=== PATIENT | male | born 1945 | race Caucasian/White ===

== ENCOUNTER → 2016-08-19 | Outpatient (CLI) | payer MEDICARE ==
[~2016-08-19] MED LIST: DOBUTamine DRIP for NUC MED 500 MG in DEXTROSE/WATER 1 250ML.BAG IV ONE
--- NOTE | 2016-08-19 13:46 | ECHOS ---
DATE OF SERVICE: 08/19/2016 AGE: 71Y SEX: M HT: 65" WT: 175 lbs. Protocol Sidney: Others: Dobutamine Stress Echo Stage: 3 Dur. of Exercise: 6:45 *Heart Rate Blood Pressure *Rest: 71 Rest: 118/72 * *Max. Achieved: 128 Maximum BP: 157/57 85% PMHR: 128 100% PMHR: 151 *METS: - INDICATIONS: Shortness of breath. MEDICATIONS: Simvastatin, lisinopril, Tamsulosin, Tramadol, gabapentin, lorazepam. Patient unable to exercise because of the problems with the leg. Resting ECG shows sinus rhythm, rate of 71 beats per minutes, HI interval 0.16, QRS 0.10, normal ST-T waves. Utilizing a standard dobutamine protocol, dobutamine was increased up to 30 mcg/kg per minute. At the end of peak heart rate 128 beats per minute, which is approximately 85% of predicted maximal heart rate without any chest pain or pressure or ST segment deviations indicative of ischemia and no symptoms are reported. Patient's baseline images show normal thickening and contractibility. Postexercise images show improved contractility and thickening consistent with a normal study. IMPRESSION: 1. Normal dobutamine stress echocardiogram. 2. Patient did not report any symptoms. 3. Patient did not have any ST segment deviations indicative of ischemia in any of the monitoring 12 leads.
== END | disposition home or self-care (01) ==
LOC: RADNMMAIN 09:27
PROVIDERS: ATTEND Family Medicine
DX: R07.89 Other chest pain (principal)
CPT/HCPCS: 93017; 93350; J1250

== ENCOUNTER → 2017-01-27 | Outpatient (CLI) | payer MEDICARE ==
--- NOTE | 2017-01-27 15:50 | US ---
EXAMINATION TYPE: US carotid duplex BILAT DATE OF EXAM: 01/27/2017 COMPARISON: CLINICAL HISTORY: R42 Lightheadeness, R55 Near syncope. EXAM MEASUREMENTS: RIGHT: Peak Systolic Velocity (PSV) cm/sec ----- Right CCA: 104.0 ----- Right ICA: 68.8 ----- Right ECA: 97.8 ICA/CCA ratio: 0.7 RIGHT: End Diastole cm/sec ----- Right CCA: 25.6 ----- Right ICA: 21.7 ----- Right ECA: 11.1 LEFT: Peak Systolic Velocity (PSV) cm/sec ----- Left CCA: 93.0 ----- Left ICA: 91.9 ----- Left ECA: 100.8 ICA/CCA ratio: 1.0 LEFT: End Diastole cm/sec ----- Left CCA: 19.3 ----- Left ICA: 29.2 ----- Left ECA: 7.6 VERTEBRALS (direction of flow): Right Vertebral: Antegrade Left Vertebral: Antegrade No significant stenosis, high velocities or wall thickening. Plaque seen in left bulb. IMPRESSION: 1. No significant flow-limiting stenosis. Criteria for Assigning % of Stenosis / Diameter reduction (Estimation based on the indirect measurements of the internal carotid artery velocities (ICA PSV). 1. Normal (no stenosis)=ICA PSV < 125 cm/s: ratio < 2.0: ICA EDV<40 cm/s. 2. Less than 50% stenosis=ICA PSV < 125 cm/s: ratio < 2.0: ICA EDV<40 cm/s. 3. 50 to 69% stenosis=ICA PSV of 125 to 230 cm/s: ration 2.0 ? 4.0: ICA EDV 40-100 cm/s. 4. Greater than 70% stenosis to near occlusion= ICA PSV > 230 cm/s: ratio > 4.0: ICA EDV > 100 cm/s. 5. Near occlusion= ICA PSV velocities may be low or undetectable: variable ratio and ICA EDV. 6. Total occlusion=unable to detect flow.
== END | disposition home or self-care (01) ==
LOC: RADUSWWP 14:43
PROVIDERS: ATTEND Family Medicine
DX: R55 Syncope and collapse (principal); R42 Dizziness and giddiness
CPT/HCPCS: 93880

== ENCOUNTER → 2017-03-31 | Outpatient (CLI) | payer MEDICARE ==
--- NOTE | 2017-04-01 20:47 | ECHOF ---
Referral Reason:R07.89 atypical chest pain MEASUREMENTS -------- HEIGHT: 165.1 cm WEIGHT: 79.4 kg BP: 127/71 RVIDd: 2.9 cm (< 3.3) IVSd: 1.2 cm (0.6 - 1.1) LVIDd: 3.5 cm (3.9 - 5.3) LVPWd: 1.1 cm (0.6 - 1.1) IVSs: 1.6 cm LVIDs: 2.5 cm LVPWs: 1.6 cm LAESV Index (A-L): 20.10 ml/m Ao Diam: 3.5 cm (2.0 - 3.7) AV Cusp: 1.7 cm (1.5 - 2.6) LA Diam: 2.8 cm (2.7 - 3.8) MV E Nash: 0.67 m/s MV DecT: 298 ms MV A Nash: 0.74 m/s MV E/A Ratio: 0.90 RAP: 5.00 mmHg RVSP: 22.41 mmHg FINDINGS -------- Sinus rhythm with extra systolic beats. This was a technically adequate study. There is mild concentric left ventricular hypertrophy. Overall left ventricular systolic function is normal with, an EF between 55 - 60 %. The right ventricle is moderately enlarged. Normal LA size by volume 22+/-6 ml/m2. RA appears enlarged. Aortic valve is trileaflet and is mildly thickened. There is no evidence of aortic regurgitation. There is no evidence of aortic stenosis. The mitral valve leaflets are mildly thickened. There is trace mitral regurgitation. Trace tricuspid regurgitation present. There is no evidence of pulmonary hypertension. The right ventricular systolic pressure, as measured by Doppler, is 22.41mmHg. The pulmonic valve was not well visualized. The aortic root size is normal. Normal inferior vena cava with normal inspiratory collapse consistent with estimated right atrial pressure of 5 mmHg. The pericardium is normal. There is no pericardial effusion. CONCLUSIONS -------- 1. Sinus rhythm with extra systolic beats. 2. There is trace mitral regurgitation. 3. Trace tricuspid regurgitation present. 4. There is no evidence of pulmonary hypertension. 5. The right ventricular systolic pressure, as measured by Doppler, is 22.41mmHg. 6. The pulmonic valve was not well visualized. 7. The aortic root size is normal. 8. There is no pericardial effusion. 9. This was a technically adequate study. 10. There is mild concentric left ventricular hypertrophy. 11. Overall left ventricular systolic function is normal with, an EF between 55 - 60 %. 12. The right ventricle is moderately enlarged. 13. Normal LA size by volume 22+/-6 ml/m2. 14. RA appears enlarged. 15. Aortic valve is trileaflet and is mildly thickened. 16. The mitral valve leaflets are mildly thickened. [employer]ER: Himanshu Huff RDCS
== END | disposition home or self-care (01) ==
LOC: RADECHMAIN 14:42
PROVIDERS: ATTEND Family Medicine
DX: I08.1 Rheumatic disorders of both mitral and tricuspid valves (principal); R07.89 Other chest pain
CPT/HCPCS: 93306

== ENCOUNTER 2017-04-11 11:25 | Emergency (ER) | payer MEDICARE ==
--- NOTE | 2017-04-11 11:47 | ED ---
General Adult HPI - General Chief complaint: Urogenital Stated complaint: Urine retention Time Seen by Provider: 04/11/17 11:36 Source: patient, RN notes reviewed, old records reviewed Mode of arrival: wheelchair Limitations: no limitations - History of Present Illness Initial comments: This is a 72-year-old male here for evaluation of bowel pain. I'll. Difficulty with urination. Patient has history of urinary retention. Patient believes is a decreased urinary output for 4 days and severe bladder pain. Recently on antibiotics for UTI. - Related Data Home Medications Medication Instructions Recorded Confirmed Gabapentin [Neurontin] 1 tab PO QID 04/11/17 04/11/17 LORazepam [Ativan] 0.5 mg PO BID 04/11/17 04/11/17 Lisinopril [Zestril] 1 tab PO DAILY 04/11/17 04/11/17 Simvastatin [Zocor] 1 tab PO DAILY 04/11/17 04/11/17 Tamsulosin HCl [Flomax] 1 tab PO DAILY 04/11/17 04/11/17 Allergies Allergy/AdvReac Type Severity Reaction Status Date / Time No Known Allergies Allergy Verified 04/11/17 11:33 Review of Systems ROS Statement: Those systems with pertinent positive or pertinent negative responses have been documented in the HPI. ROS Other: All systems not noted in ROS Statement are negative. Past Medical History Past Medical History: Hyperlipidemia, Hypertension, Prostate Disorder Additional Past Medical History / Comment(s): polio, chronic knee pain History of Any Multi-Drug Resistant Organisms: None Reported Past Surgical History: Joint Replacement, Orthopedic Surgery Past Psychological History: Anxiety Smoking Status: Never smoker Past Alcohol Use History: Rare Past Drug Use History: None Reported General Exam Limitations: no limitations General appearance: alert, in no apparent distress, anxious Head exam: Present: atraumatic, normocephalic, normal inspection Eye exam: Present: normal appearance, PERRL, EOMI. Absent: scleral icterus, conjunctival injection, periorbital swelling ENT exam: Present: normal exam, mucous membranes moist Neck exam: Present: normal inspection. Absent: tenderness, meningismus, lymphadenopathy Respiratory exam: Present: normal lung sounds bilaterally. Absent: respiratory distress, wheezes, rales, rhonchi, stridor Cardiovascular Exam: Present: regular rate, normal rhythm, normal heart sounds. Absent: systolic murmur, diastolic murmur, rubs, gallop, clicks GI/Abdominal exam: Present: soft, normal bowel sounds. Absent: distended, tenderness, guarding, rebound, rigid Extremities exam: Present: normal inspection, full ROM, normal capillary refill. Absent: tenderness, pedal edema, joint swelling, calf tenderness Back exam: Present: normal inspection Neurological exam: Present: alert, oriented X3, CN II-XII intact Psychiatric exam: Present: normal affect, normal mood Skin exam: Present: warm, dry, intact, normal color. Absent: rash Course Vital Signs 04/11/17 04/11/17 04/11/17 11:28 11:50 11:55 Temperature 98.4 F Pulse Rate 92 92 87 Respiratory 20 18 18 Rate Blood Pressure 137/78 185/89 158/74 O2 Sat by Pulse 97 97 97 Oximetry 04/11/17 11:58 Temperature Pulse Rate 76 Respiratory 17 Rate Blood Pressure 159/78 O2 Sat by Pulse 97 Oximetry - Reevaluation(s) Reevaluation #1: 04/11/17 12:25 Patient has great pain relief after placement of Ken Medical Decision Making - Medical Decision Making 72 me[facility] ER for evaluation of suprapubic bowel pain, recent diagnosis of urinary tract infection, significant urinary retention. A liter in his bladder. Patient is fully place will be sent home with Ken to follow up with urology Disposition Clinical Impression: Urinary retention Disposition: HOME SELF-CARE Condition: Good Instructions: Urinary Retention in Men (ED) Referrals: Michael Banda DO [Primary Care Provider] - 1-2 days Zachariah Sanders MD [STAFF PHYSICIAN] - 1-2 days
[2017-04-11 12:04] VITALS: RESP 17
[2017-04-11 12:55] LABS: Appearance,Urine Cloudy (Clear); Bacteria,Urine Many /hpf; Bilirubin,Urine Negative (Negative); Glucose,Urine (UA) Negative (Negative); Ketones,Urine Negative (Negative); Leukocyte Esterase,Urine Large (Negative); Mucus,Urine Few /hpf; Nitrite,Urine Positive (Negative); Particle Count 36803; Protein,Urine Trace (Negative); RBC,Urine 4 /hpf (0-5); Specific Gravity,Urine 1.012 (1.001-1.035); UA Billing (MACRO vs. MICRO) MICRO; Urobilinogen,Urine <2.0 mg/dL (<2.0); WBC,Urine 75 /hpf (0-5)
[2017-04-11 13:16] VITALS: BP 154/72; PULSE 78; TEMP 97.1
== END 2017-04-11 13:35 | disposition home or self-care (01) ==
LOC: EC 11:25
DX: R33.9 Retention of urine, unspecified (principal); I10 Essential (primary) hypertension; E78.5 Hyperlipidemia, unspecified; N42.9 Disorder of prostate, unspecified; Z79.899 Other long term (current) drug therapy; F41.9 Anxiety disorder, unspecified
CPT/HCPCS: 51702; 81001; 87077; 87086; 87186; 99284

== ENCOUNTER → 2017-05-14 | Outpatient (CLI) | payer MEDICARE ==
[2017-05-14 12:10] LABS: Anion Gap 8 mmol/L; Blood Urea Nitrogen 17 mg/dL (9-20); Calcium 9.7 mg/dL (8.4-10.2); Carbon Dioxide 31 mmol/L (22-30); Chloride 102 mmol/L (98-107); Glucose 87 mg/dL (74-99); Non-African American GFR(MDRD) >60 (>60 ml/min/1.73 sqM); Potassium 5.3 mmol/L (3.5-5.1); Sodium 141 mmol/L (137-145)
[2017-05-14 12:17] LABS: Basophils % (A) 0 %; CH 29.5; CHCM 32.2; Eosinophils # (A) 0.2 k/uL (0-0.7); Eosinophils % (A) 3 %; HCT 43.2 % (39.0-53.0); HDW 2.66; Luc # (Auto) 0.12; Luc % (Auto) 2; Lymphocytes # (A) 1.4 k/uL (1.0-4.8); Lymphocytes % (A) 23 %; MCH 29.7 pg (25.0-35.0); MCHC 32.3 g/dL (31.0-37.0); MCV 91.9 fL (80.0-100.0); Mean Platelet Volume 6.6; Monocytes # (A) 0.4 k/uL (0-1.0); Monocytes % (A) 6 %; Neutrophils % (A) 66 %; RDW 13.6 % (11.5-15.5); WBC (Perox) 6.05
== END | disposition home or self-care (01) ==
LOC: LABPAT 11:28
PROVIDERS: ATTEND Urology
DX: Z01.812 Encounter for preprocedural laboratory examination (principal); N40.1 Benign prostatic hyperplasia with lower urinary tract symptoms; R31.0 Gross hematuria; Z79.899 Other long term (current) drug therapy
CPT/HCPCS: 80048; 85025; 87077; 87086; 87186

== ENCOUNTER 2017-05-21 06:40 | Day surgery (SDC) | payer MEDICARE ==
[2017-05-13 16:20] VITALS: BMI 29.1
[~2017-05-21 06:40] MED LIST changes: -DOBUTamine DRIP for NUC MED 500 MG in DEXTROSE/WATER 1 250ML.BAG IV ONE; +GENTAMICIN 120 MG in SODIUM CHLORIDE 0.9% 100 ML IVPB ONE; +HYDROmorphone 0.5 MG/0.5 ML SYRINGE IVP PRN; +LACTATED RINGERS 1,000 ML IV SCH; +MIDAZOLAM 2 MG/2 ML VIAL IV PRN; +ONDANSETRON 4 MG/2 ML VIAL IVP ONE; +ceFAZolin 2 GM in SODIUM CHLORIDE 0.9% 100 ML IVPB ONE
[2017-05-21] MEDS ORDERED: LIDOCAINE 1% 20 ML VIAL (10MG/ML) FOR IV START INTRADERMA ONE (07:48)
[2017-05-21] MEDS ORDERED: LIDOCAINE 1% INJ 10MG/ML (20 ML MDV) ONE (08:26)
[2017-05-21] MEDS ORDERED: PROPOFOL 10 MG/ML 20 ML VIAL IV ONE (08:26)
[2017-05-21] MEDS ORDERED: MIDAZOLAM 2 MG/2 ML VIAL ONE (08:26)
[2017-05-21] MEDS ORDERED: fentaNYL (PF) 50 MCG/ML 2 ML AMP ONE (08:26)
[2017-05-21 11:35] VITALS: TEMP 97
--- NOTE | 2017-05-21 11:37 | P.OP ---
Date of Procedure: 05/21/17 Preoperative Diagnosis: Urinary Retention Secondary to BPH Postoperative Diagnosis: Same Procedure(s) Performed: Cystoscopy, Bipolar Transurethral Resection of Prostate (TURP) Anesthesia: spinal Surgeon: Zachariah Sanders Estimated Blood Loss (ml): 150 IV fluids (ml): 1,400 Pathology: other (prostate chips) Condition: stable Disposition: PACU Indications for Procedure: He is a 72-year-old male with a history of polio. He recently developed urinary retention. 1100 cc of urine was drained from his bladder. He is currently taking tamsulosin 0.8 mg, and has a Ken catheter in place. A CMG shows a recompensated bladder, and cystoscopy shows trilobar BPH. He will be scheduled to undergo a TURP. Operative Findings: Trilobar BPH Description of Procedure: The patient was taken in the operating room and placed in the dorsolithotomy position after being given a spinal anesthetic, The external genitalia was prepped and draped sterilely. The 25-Georgian ACMI resectoscope sheath was introduced into the bladder. The bladder was inspected. Both ureteral orifices were of normal anatomic location and configuration, and clear urine effluxed from both. No tumors or foreign bodies were seen. Examination of the prostate revealed complete obstruction with a trilobar configuration. Using the bipolar cutting loop, the median lobe was initially resected. Next, the lateral lobes were resected down to the surgical capsule. The floor of the prostate was then resected, proximal to the verumontanum. Lastly, any remaining anterior tissue was resected. The prostatic fossa was then carefully examined. The remaining apical tissue was then carefully resected. The resection was carried down to the surgical capsule in all 4 quadrants. The prostatic fossa was then carefully examined, and any areas of bleeding were controlled with electrocautery. Excellent hemostasis was attained. The resectoscope was withdrawn into the bulbous urethra. The external urinary sphincter remained intact. The prostatic fossa was open. The AnaliliaCiplex evacuator was used to remove all prostate chips from the bladder. These were saved and sent for pathologic examination. The resectoscope was removed, and a 20 Georgian Ken catheter was placed. The return was clear. The patient tolerated the procedure well was taken to the recovery room in stable condition.
[2017-05-21 12:15] VITALS: RESP 18
[2017-05-21 13:15] VITALS: BP 109/60; PULSE 84
== END 2017-05-21 13:50 | disposition home or self-care (01) ==
LOC: OR 06:40
PROVIDERS: ATTEND Urology
DX: N40.1 Benign prostatic hyperplasia with lower urinary tract symptoms (principal); R33.8 Other retention of urine; N52.9 Male erectile dysfunction, unspecified; I10 Essential (primary) hypertension; E78.5 Hyperlipidemia, unspecified; M54.9 Dorsalgia, unspecified; F32.9 Major depressive disorder, single episode, unspecified; G62.9 Polyneuropathy, unspecified; Z86.12 Personal history of poliomyelitis; R53.1 Weakness; Z79.2 Long term (current) use of antibiotics; Z79.891 Long term (current) use of opiate analgesic; Z79.899 Other long term (current) drug therapy
CPT/HCPCS: 52601; 93005; 88305; J2250; J0690; J2405; J2001; J3010; J1580; J2704

== ENCOUNTER 2018-12-01 10:39 | Day surgery (SDC) | payer MEDICARE ==
[2018-11-25 16:04] VITALS: BMI 26.4
[~2018-12-01 10:39] MED LIST changes: +ALPRAZolam 0.25 MG TAB PO PRN; +ALPRAZolam 0.5 MG TAB PO PRN; +ASPIRIN 325 MG TAB PO STA; +ATORVASTATIN 80 MG TAB PO STA; -GENTAMICIN 120 MG in SODIUM CHLORIDE 0.9% 100 ML IVPB ONE; -HYDROmorphone 0.5 MG/0.5 ML SYRINGE IVP PRN; -LACTATED RINGERS 1,000 ML IV SCH; -MIDAZOLAM 2 MG/2 ML VIAL IV PRN; +NITROGLYCERIN SL TABS 0.4 MG TAB SUBLINGUAL PRN; -ONDANSETRON 4 MG/2 ML VIAL IVP ONE; +SODIUM CHLORIDE 0.9% 1,000 ML in EMPTY BAG 1 BAG IV ONE; -ceFAZolin 2 GM in SODIUM CHLORIDE 0.9% 100 ML IVPB ONE
[2018-12-01] MEDS ORDERED: VERAPAMIL 2.5 MG/ML 2 ML AMP ONE (13:11)
[2018-12-01] MEDS ORDERED: fentaNYL (PF) 50 MCG/ML 2 ML AMP ONE (13:11)
[2018-12-01] MEDS ORDERED: LIDOCAINE 1% INJ 10MG/ML (20 ML MDV) ONE (13:12)
[2018-12-01] MEDS ORDERED: HEPARIN SODIUM 1,000 UN/ML (10ML VL) ONE (13:12)
[2018-12-01] MEDS ORDERED: LIDOCAINE 1% INJ 10MG/ML (20 ML MDV) SQ ONE (13:37)
[2018-12-01] MEDS ORDERED: fentaNYL (PF) 50 MCG/ML 2 ML AMP IVP ONE (13:37)
[2018-12-01] MEDS ORDERED: MIDAZOLAM 2 MG/2 ML VIAL IV ONE (13:37)
[2018-12-01] MEDS ORDERED: VERAPAMIL SYRINGE (5 MG/10 ML) INTRAARTER ONE (13:40)
[2018-12-01] MEDS ORDERED: IOPAMIDOL-370 100ML BTL INJ ONE ×2 (14:05→14:10)
[2018-12-01] MEDS ORDERED: RX INFO: IV CONTRAST WAS GIVEN 1 EACH MISC MISCELLANE PRN (14:30)
[2018-12-01] MEDS ORDERED: IBUPROFEN 800 MG TAB PO PRN (14:30)
[2018-12-01] MEDS ORDERED: traMADol 50 MG TAB PO PRN (14:30)
[2018-12-01] MEDS ORDERED: LORazepam 0.5 MG TAB PO PRN (14:30)
[2018-12-01 15:05] VITALS: RESP 18
--- NOTE | 2018-12-01 15:12 | CC ---
CARDIAC CATHETERIZATION REPORT Mr. Claudio is a 73-year-old male with a known history of hypertension, hyperlipidemia and a strong family history of coronary artery disease who has been complaining of progressive fatigue and lack of energy. He had a myocardial perfusion imaging that revealed partial reversible inferior wall defect. In view of that, recommendation made regarding cardiac catheterization. The procedures, risks, and complications were discussed with the patient who is in full understanding and agreement. PROCEDURE: Patient was brought to the laborer stores in a fasting semi-sedated state after receiving fentanyl and Benadryl and achieving moderate conscious sedated state. Using Xylocaine anesthesia and Seldinger technique, a 6-Israeli sheath was introduced in the right radial artery, attempt to cannulate the right coronary artery using a 5-Israeli 3.5 bend right Taylor catheter were unsuccessful. Attempt to cannulate the left main using a 5- Israeli 3.5 bend and 4 bend left Taylor were unsuccessful. At that time, the catheters were removed and a 6-Israeli Xavi catheter was introduced and images of the coronary arteries were obtained. Following that, a 5-Israeli tight pigtail catheter was introduced in the left ventricle and a 30 degree RUSSELL view of the left ventricle was obtained. Following that, catheter and sheath were removed. Hemostasis was obtained with deployment of a TR band. There was no immediate complication. Patient is returned to his room in stable condition. Of note, the patient received 4000 units of intravenous heparin as well as intra-arterial verapamil. FINDINGS: FLUOROSCOPY: There was calcification involving the left anterior descending artery and the right coronary artery. LEFT MAIN: This is a large-sized vessel bifurcating into left circumflex, left anterior descending artery. Left main coronary artery has no evidence of high-grade stenosis. LEFT ANTERIOR DESCENDING ARTERY: This is a large-sized vessel, reaching toward the apex with a wraparound apex segment, calcified in the proximal segment. The left anterior descending artery has no evidence of high-grade stenosis. LEFT CIRCUMFLEX: This is a large nondominant vessel, giving rise to two obtuse marginal branch, the second one is large in caliber. The left circumflex as well as branches have no evidence of obstructive coronary artery disease. RIGHT CORONARY ARTERY: This is a large dominant vessel, bifurcating distally into PDA, has an anomalous origin from the left coronary cusp. The right coronary artery has a mild intimal disease in the mid segment of 20%. The rest of the vessel has no high- grade stenosis. LEFT VENTRICULOGRAM: Left ventriculogram was performed in 30 degree RUSSELL view and revealed normal size left ventricular size and systolic function, ejection fraction 60%. There was no significant mitral regurgitation. HEMODYNAMICS: There was no gradient across the aortic valve. The left ventricular end- diastolic pressure was 8-10 mmHg. CONCLUSION: 1. Calcified coronary artery. 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 3. 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 RECOMMENDATION: In view of finding anatomy, recommend continue medical therapy with aggressive coronary risk modifications being initiated. Those findings and recommendation were discussed with the patient and his family who is in full understanding and agreement. Duration of procedure 41 minutes. MMODL / IJN: [id number] /
[2018-12-01] MEDS ORDERED: GABAPENTIN 300 MG CAP PO SCH (16:00)
[2018-12-01 16:02] VITALS: TEMP 97.8
[2018-12-01 17:33] VITALS: BP 134/74; PULSE 67
[2018-12-02] MEDS ORDERED: ATORVASTATIN 10 MG TAB PO SCH (09:00)
[2018-12-02] MEDS ORDERED: ASPIRIN 81 MG PO SCH (09:00)
[2018-12-02] MEDS ORDERED: LISINOPRIL 10 MG TAB PO SCH (09:00)
== END 2018-12-01 19:02 | disposition home or self-care (01) ==
LOC: CATHCVL 10:39 → 1SOBS 14:11 → CATHCVL 19:02
PROVIDERS: ATTEND Internal Medicine Interventional Cardiology
DX: I25.10 Atherosclerotic heart disease of native coronary artery without angina pectoris (principal); I25.84 Coronary atherosclerosis due to calcified coronary lesion; I10 Essential (primary) hypertension; E78.2 Mixed hyperlipidemia; E78.00 Pure hypercholesterolemia, unspecified; Z82.49 Family history of ischemic heart disease and other diseases of the circulatory system; Z79.1 Long term (current) use of non-steroidal anti-inflammatories (NSAID); Z79.82 Long term (current) use of aspirin; Z79.899 Other long term (current) drug therapy
CPT/HCPCS: 93458; C1894; C1769; J2250; J2001; J3010; J1644; Q9967

== ENCOUNTER → 2019-02-10 | Outpatient (CLI) | payer MEDICARE ==
--- NOTE | 2019-02-10 13:00 | US ---
EXAMINATION TYPE: US abdomen complete DATE OF EXAM: 02/10/2019 COMPARISON: US . renal 2013 CLINICAL HISTORY: R10.9 Abdomal Pain. EXAM MEASUREMENTS: Liver Length: 14.5 cm Gallbladder Wall: 0.2 cm CBD: 0.5 cm Spleen: 10.4 cm Right Kidney: 11.2 x 3.7 x5.2 cm Left Kidney: 10.6 x 5.2 x 3.7 cm Pancreas: Tail obscured by overlying bowel gas Liver: 2.1 x 2.1 x 1.5 cm cyst left lobe, posterior lobe 1.5 x 0.9 x 1.4 cm. These were seen on the r enal ultrasound of 2013. Gallbladder: Cholelithiasis seen layering dependently. No biliary sludge. Evidence for sonographic Romero's sign: No CBD: wnl Spleen: wnl Right Kidney: cysts 2.0 x 1.7 x 1.7 cm, 2.3 x 2.8 x 1.6 cm upper pole Left Kidney: wnl Upper IVC: wnl Abd Aorta: wnl The intrahepatic portion of the IVC and proximal abdominal aorta are within normal limits. There is no evidence of acute cholecystitis. Common bile duct is unremarkable. The visualized portions of th e pancreas are homogenous. The spleen is unremarkable. Kidneys are symmetric and free of hydronephr osis. No suspicious renal lesions are seen. IMPRESSION: Cholelithiasis without sonographic evidence evidence of acute cholecystitis. Redemonstrat ion of simple appearing hepatic and renal cysts.
== END | disposition home or self-care (01) ==
LOC: RADUSWWP 10:42
PROVIDERS: ATTEND Family Medicine
DX: K80.20 Calculus of gallbladder without cholecystitis without obstruction (principal); N28.1 Cyst of kidney, acquired; K76.89 Other specified diseases of liver
CPT/HCPCS: 76700

== ENCOUNTER → 2019-02-15 | Outpatient (CLI) | payer MEDICARE ==
--- NOTE | 2019-02-15 13:31 | XR ---
Lumbosacral spine HISTORY: Left-sided back pain 5 views of the lumbosacral spine No comparisons Minimal anterolisthesis grade 1 L4-5. Superior endplate of L1 shows mild depression. There is loss of disc height especially at L1-L5 S1 to lesser extent L2-3, L4-5, vacuum phenomenon present L1-L5 S1. Sclerosis present in the posterior elements. IMPRESSION: Degenerative disc disease, facet arthropathy.
== END | disposition home or self-care (01) ==
LOC: RADXRMAIN 11:26
PROVIDERS: ATTEND Family Medicine
DX: M51.37 Other intervertebral disc degeneration, lumbosacral region (principal); M46.97 Unspecified inflammatory spondylopathy, lumbosacral region
CPT/HCPCS: 72110

== ENCOUNTER → 2020-12-29 | Outpatient (CLI) | payer MEDICARE ==
--- NOTE | 2020-12-29 19:02 | MR ---
EXAMINATION TYPE: MR iac wo/w con DATE OF EXAM: 12/29/2020 COMPARISON: None HISTORY: Hearing loss CONTRAST: Standard multiplanar, multisequence MRI departmental protocol utilizing 7 mL intravenous gadolinium contrast. there is cerebral cortical atrophy. There is no mass effect nor midline shift. There is no evidence o f intracranial hemorrhage. There are a few scattered small foci of increased signal in the white alberta er in the frontal lobes. These measure up to 5 mm. Total number is approximately 5. There is a single 4 mm focus of increased signal adjacent to the occipital horn right lateral ventricle. There is no m idline shift. The diffusion images show no evidence of an acute acute infarct. Cerebellum is intact. The brainstem appears intact. Internal auditory canals appear normal. The acoustic nerve and vestibular nerves appear normal. There is no evidence of cerebellopontine angle mass. The contrast images show no pathologic enhancement. T he pituitary stalk is in the midline. Optic chiasm appears normal. Sella turcica is normal. There is no evidence of orbital mass. IMPRESSION: There are a few white matter high signal foci of uncertain significance. This could relate to minimal microvascular ischemia. No evidence of posterior fossa abnormality.
== END | disposition home or self-care (01) ==
LOC: RADMRIMAIN 12:20
PROVIDERS: ATTEND Otolaryngology
DX: R90.82 White matter disease, unspecified (principal)
CPT/HCPCS: 70553; A9585

== ENCOUNTER 2021-03-01 20:13 | Emergency (ER) | payer OTHER, MEDICARE ==
[2021-03-01 20:20] VITALS: BP 104/81; PULSE 82; RESP 18; TEMP 98.9
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
== END 2021-03-01 21:35 | disposition home or self-care (01) ==
LOC: EC 20:13
DX: Z04.1 Encounter for examination and observation following transport accident (principal); I10 Essential (primary) hypertension; E78.5 Hyperlipidemia, unspecified; F41.9 Anxiety disorder, unspecified; G89.29 Other chronic pain; Z79.82 Long term (current) use of aspirin; Z79.899 Other long term (current) drug therapy; Z82.49 Family history of ischemic heart disease and other diseases of the circulatory system; V89.2XXA Person injured in unspecified motor-vehicle accident, traffic, initial encounter; Y92.410 Unspecified street and highway as the place of occurrence of the external cause
CPT/HCPCS: 70450; 72125; 99284

== ENCOUNTER 2024-12-20 20:25 | Inpatient (IN) | payer MEDICARE ==
[2024-12-20 21:04] LABS: Basophils # (A) 0.03 10*3/uL (0.00-0.10); Basophils % (A) 0.3 %; Eosinophils # (A) 0.02 10*3/uL (0.04-0.35); Eosinophils % (A) 0.2 %; HCT 40.5 % (39.6-50.0); HGB 13.4 g/dL (13.0-17.0); Immature Platelet Fraction 2.5 % (1.1-6.1); Lymphocytes % (A) 5.9 %; MCH 30.2 pg (27.0-32.0); MCHC 33.1 g/dL (32.0-37.0); MCV 91.2 fL (80.0-97.0); Mean Platelet Volume 10.5 fL (9.5-12.2); Monocytes # (A) 1.05 10*3/uL (0.20-1.00); Monocytes % (A) 10.4 %; Neutrophils # (A) 8.36 10*3/uL (1.80-7.70); Neutrophils % (A) 82.6 %; RBC 4.44 10*6/uL (4.40-5.60); RDW 14.2 % (11.5-14.5); WBC 10.12 10*3/uL (4.50-10.00)
--- NOTE | 2024-12-20 21:16 | ED ---
Fall HPI - General Chief Complaint: Fall Stated Complaint: Fall Time Seen by Provider: 12/20/24 20:35 Source: patient, RN notes reviewed Mode of arrival: EMS Limitations: no limitations - History of Present Illness Initial Comments: This is a 79-year-old male who presents to the emergency department for a fall. Around 10 AM he was going to the kitchen and his leg slid out from underneath him, causing him to fall and land on his right side. Denies hitting his head or any loss of consciousness. Not taking any blood thinners. All of the pain is to his right hip and lower back. States that he is unable to move his leg as a result of the pain. He has also been unable to ambulate since he fell. He did not come in right away, because he wanted to see if his pain would improve. His right leg is thinner with poor pulses, which is chronic for him secondary to a history of polio. Denies sustaining any additional injuries. MD Complaint: fall - Related Data Home Medications Medication Instructions Recorded Confirmed LORazepam [Ativan] 0.5 mg PO TID 04/11/17 03/01/21 Simvastatin [Zocor] 20 tab PO HS 04/11/17 03/01/21 lisinopriL [Zestril] 10 mg PO DAILY 04/11/17 03/01/21 Gabapentin 300 mg PO TID 05/13/17 03/01/21 traMADol HCL [Ultram] 50 mg PO TID 05/13/17 03/01/21 Citalopram Hydrobromide [CeleXA] 40 mg PO DAILY 03/01/21 03/01/21 Tamsulosin HCl [Flomax] 0.4 mg PO BID 03/01/21 03/01/21 Allergies Allergy/AdvReac Type Severity Reaction Status Date / Time No Known Allergies Allergy Verified 12/20/24 20:32 Review of Systems ROS Statement: Those systems with pertinent positive or pertinent negative responses have been documented in the HPI. ROS Other: All systems not noted in ROS Statement are negative. 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 NERVE PAIN IN LEGS. walking pna, broncitis History of Any Multi-Drug Resistant Organisms: None Reported Past Surgical History: Joint Replacement, Orthopedic Surgery, Prostate Surgery Additional Past Surgical History / Comment(s): TOTAL LEFT KNEE X2, RIGHT FOOT MORALES S METAL CASSIE TO PREVENT FOOT DROP. Past Anesthesia/Blood Transfusion Reactions: Previous Problems w/ Anesthesia Additional Past Anesthesia/Blood Transfusion Reaction / Comment(s): STATES SPINAL ANESTHESIA DID NOT TAKE- WOKE UP SCREAMING. STATES POST POLIO SYNDROME AFFECTS ANESTHESIA. Past Psychological History: Anxiety Smoking Status: Never smoker Past Alcohol Use History: Rare Past Drug Use History: None Reported - Past Family History Mother Family Medical History: CVA/TIA Additional Family Medical History / Comment(s): OF HEART PROBLEMS IN HER 80'S Father Family Medical History: Myocardial Infarction ([place]) Additional Family Medical History / Comment(s): OF HEART ATTACK AT 48 YRS OLD. Brother(s) Family Medical History: Myocardial Infarction ([place]) Additional Family Medical History / Comment(s): TWIN BROTHER OF HEART ATTACK . General Exam Limitations: no limitations General appearance: alert, in no apparent distress Head exam: Present: atraumatic, normocephalic, normal inspection Respiratory exam: Present: normal lung sounds bilaterally. Absent: respiratory distress, wheezes, rales, rhonchi, stridor Cardiovascular Exam: Present: regular rate, normal rhythm Extremities exam: Present: other (Shortening and external rotation of the right lower extremity. ROM limited by pain. Capillary refill less than 1 second. Poor pulseschronic per patient) Neurological exam: Present: alert, oriented X3, CN II-XII intact Psychiatric exam: Present: normal affect, normal mood Skin exam: Present: warm, dry, intact, normal color. Absent: rash Course Vital Signs 12/20/24 12/20/24 12/21/24 20:26 22:00 00:02 Temperature 99.6 F Pulse Rate 69 87 75 Respiratory 16 18 18 Rate Blood Pressure 115/47 121/65 110/60 O2 Sat by Pulse 95 95 94 L Oximetry Medical Decision Making - Medical Decision Making This is a 79-year-old male who presents to the emergency department for right hip pain and low back pain after a fall. Was pt. sent in by a medical professional or institution? @ -No Did you speak to anyone other than the patient for history? @ -No Did you review nursing and triage notes? @ -Yes, and I agree, it is accurate with regards to the patient's symptoms. Were old charts reviewed? @ -No Differential Diagnosis? @ -Differential Musculoskeletal Muscular strain, contusion, ligament sprain, fracture, arthritis, septic arthritis, bursitis, cellulitis, muscle spasm, nerve compression, DVT, arterial occlusion, herpes zoster, electrolyte abnormality, tumor.... This is not meant to be in all inclusive list. EKG interpreted by me (3pts min.)? @ -EKG interpreted by me demonstrating the following: Sinus rhythm. Ventricular rate 70 bpm, ME interval 154 ms, QRS duration 93 ms, QTc 402 ms. X-rays interpreted by me (1pt min.)? @ -Chest x-ray obtained, my interpretation identifies no localized consolidations or infiltrates. X-ray of the right hip/AP pelvis obtained. My interpretation identifies a right femoral neck fracture. X-ray of the right knee and lumbar spine obtained. My interpretation identifies no acute fractures. CT interpreted by me (1pt min.)? @ -Not obtained U/S interpreted by me (1pt. min.)? @ -Not obtained What testing was considered but not performed? (CT, X-rays, U/S, labs)? Why? @ -None What meds were considered but not given? Why? @ -None Did you discuss the management of the patient with other professionals? @ -Yes, Dr. Ochoa, who accepts the patient for admission Did you reconcile home meds? @ -No Was smoking cessation discussed for >3mins.? @ -No Was critical care preformed (if so, how long)? @ -No Were there social determinants of health that impacted care today? How? (Homelessness, low income, unemployed, alcoholism, drug addiction, transportation, low edu. Level, literacy, decrease access to med. care, long term, rehab)? @ -No Was there de-escalation of care discussed even if they declined? (Discuss DNR or withdrawal of care, Hospice)? @ -No What co-morbidities impacted this encounter? (DM, HTN, Smoking, COPD, CAD, Cancer, CVA, Hep., AIDS, mental health diagnosis, sleep apnea, morbid obesity)? @ -HTN, HLD Was patient admitted / discharged? @ -Admitted. X-ray of the right hip/AP pelvis obtained demonstrating a femoral neck fracture. X-ray of the lumbar spine and right knee reveals no acute process. Preoperative workup obtained including an EKG, lab work, and chest x- ray. Lab work demonstrates mild leukocytosis and is otherwise unremarkable. Chest x-ray reveals no acute process. Patient admitted to orthopedics for right femoral neck fracture. Medicine consulted for medical management and surgical clearance. Will keep patient n.p.o. after midnight in the event any intervention takes place tomorrow. Case discussed with ED attending Dr. Gould. Undiagnosed new problem with uncertain prognosis? @ -None Drug Therapy requiring intensive monitoring for toxicity (Heparin, Nitro, Insulin, Cardizem)? @ -None Were any procedures done? @ -None Diagnosis/symptom? @ -Right femoral neck fracture, fall Acute, or Chronic, or Acute on Chronic? @ -Acute Uncomplicated (without systemic symptoms) or Complicated (systemic symptoms)? @ -Uncomplicated Side effects of treatment? @ -None Exacerbation, Progression, or Severe Exacerbation] @ -Not applicable Poses a threat to life or bodily function? @ -Will limit his ability to ambulate for the meantime - Lab Data Result diagrams: 12/20/24 20:51 12/20/24 20:51 Lab Results 12/20/24 12/20/24 12/20/24 Range/Units 20:51 20:51 20:51 WBC 10.12 H (4.50-10.00) 10*3/uL RBC 4.44 (4.40-5.60) 10*6/uL Hgb 13.4 (13.0-17.0) g/dL Hct 40.5 (39.6-50.0) % MCV 91.2 (80.0-97.0) fL MCH 30.2 (27.0-32.0) pg MCHC 33.1 (32.0-37.0) g/dL Plt Count 215 (140-440) 10*3/uL MPV 10.5 (9.5-12.2) fL Immature Gran % (Auto) 0.6 % Neutrophils % 82.6 % Lymphocytes % 5.9 % Monocytes % 10.4 % Eosinophils % 0.2 % Basophils % 0.3 % Immature Gran # 0.06 H (0.00-0.04) 10*3/uL Neutrophils # 8.36 H (1.80-7.70) 10*3/uL Lymphocytes # 0.60 L (0.90-5.00) 10*3/uL Monocytes # 1.05 H (0.20-1.00) 10*3/uL Eosinophils # 0.02 L (0.04-0.35) 10*3/uL Basophils # 0.03 (0.00-0.10) 10*3/uL Manual Slide Review Performed Immature Plt Fraction 2.5 (1.1-6.1) % PT 10.9 (10.0-12.5) sec INR 1.0 (<1.2) APTT 18.8 L (22.0-30.0) sec Sodium 135 L (137-145) mmol/L Potassium 5.0 (3.5-5.1) mmol/L Chloride 102 (98-107) mmol/L Carbon Dioxide 21 L (22-30) mmol/L Anion Gap 12 mmol/L BUN 34 H (9-20) mg/dL Creatinine 0.79 (0.66-1.25) mg/dL Est GFR (CKD-EPI)AfAm >90 (>60 ml/min/1.73 sqM) Est GFR (CKD-EPI)NonAf 87 (>60 ml/min/1.73 sqM) Glucose 110 H (74-99) mg/dL Calcium 9.6 (8.4-10.2) mg/dL Total Bilirubin 1.5 H (0.2-1.3) mg/dL AST 53 (17-59) U/L ALT 39 (4-49) U/L Alkaline Phosphatase 84 (38-126) U/L Creatine Kinase 146 (55-170) U/L Total Protein 7.2 (6.3-8.2) g/dL Albumin 4.3 (3.5-5.0) g/dL - Radiology Data Radiology results: report reviewed, image reviewed Disposition Clinical Impression: Fall, Fracture of femoral neck, right Disposition: ADMITTED IP TO THIS HOSP
[2024-12-20] MEDS: MORPHINE SULFATE 4 MG/ML SYRINGE IVP STA (21:23)
[2024-12-20] MEDS: SODIUM CHLORIDE 0.9% 1,000 ML IV ONE (21:23)
[2024-12-20 21:29] LABS: Prothrombin Time 10.9 sec (10.0-12.5)
[2024-12-20 21:32] LABS: ALT 39 U/L (4-49); African American GFR (CKD) >90 (>60 ml/min/1.73 sqM); Albumin 4.3 g/dL (3.5-5.0); Anion Gap 12 mmol/L; Blood Urea Nitrogen 34 mg/dL (9-20); Calcium 9.6 mg/dL (8.4-10.2); Carbon Dioxide 21 mmol/L (22-30); Chloride 102 mmol/L (98-107); Creatine Kinase 146 U/L (55-170); Glucose 110 mg/dL (74-99); Non-African American GFR(CKD) 87 (>60 ml/min/1.73 sqM); Sodium 135 mmol/L (137-145); Total Bilirubin 1.5 mg/dL (0.2-1.3); Total Protein 7.2 g/dL (6.3-8.2)
[2024-12-20 21:33] LABS: AST 53 U/L (17-59); Alkaline Phosphatase 84 U/L (38-126)
[2024-12-20 21:43] LABS: Partial Thromboplastin Time 18.8 sec (22.0-30.0)
--- NOTE | 2024-12-20 21:47 | XR ---
EXAMINATION TYPE: XR chest 1V DATE OF EXAM: 12/20/2024 9:19 PM COMPARISON: None. CLINICAL INDICATION: Male, 79 years old with history of Fall, pain TECHNIQUE: XR chest 1V view(s) obtained. FINDINGS: The heart size is normal. The pulmonary vasculature is normal. The lungs are clear. No pneumothorax is evident. No displaced rib fractures are identified on the AP chest. IMPRESSION: 1. No acute pulmonary process. [facility], Workstation: [facility], 12/20/2024 9:45 PM
[2024-12-20 21:51] LABS: Platelet Count 215 10*3/uL (140-440)
[2024-12-20] MEDS: HYDROmorphone 1 MG/ML 1 ML SYRINGE IVP STA (22:36)
--- NOTE | 2024-12-20 22:36 | XR ---
EXAMINATION TYPE: XR lumbar spine 2 or 3V DATE OF EXAM: 12/20/2024 9:19 PM COMPARISON: None. CLINICAL INDICATION: Male, 79 years old with history of Fall, pain TECHNIQUE: 3 view(s) obtained. FINDINGS: There are 5 lumbar-type vertebral bodies. Pedicles are intact. Scoliosis is present. There is narrowi ng of disc height throughout the lumbar spine more diffusely in the upper portion posteriorly in the lower portion. Vertebral body heights are preserved. No spondylolisthesis is evident. IMPRESSION: 1. Degenerative disc changes and scoliosis. 2. No acute osseous abnormality radiographically apparent [facility], Workstation: [facility], 12/20/2024 10:34 PM
--- NOTE | 2024-12-20 22:39 | XR ---
EXAMINATION TYPE: XR knee limited RT DATE OF EXAM: 12/20/2024 10:27 PM COMPARISON: None. CLINICAL INDICATION: Male, 79 years old with history of Fall, pain TECHNIQUE: 2 view(s) obtained. FINDINGS: No acute fracture or dislocation evident. There is narrowing of the lateral compartment joint space. No joint effusion is evident. Follow-up exams can be performed 7-10 days from acute trauma for continued pain. IMPRESSION: 1. No acute osseous abnormality radiographically apparent right knee [facility], Workstation: [facility], 12/20/2024 10:37 PM
--- NOTE | 2024-12-20 22:43 | XR ---
EXAMINATION TYPE: XR Hip RT and AP Pelvis DATE OF EXAM: 12/20/2024 9:19 PM COMPARISON: None. CLINICAL INDICATION: Male, 79 years old with history of Fall, pain TECHNIQUE: 2 view(s) obtained. Exam is supplemented with an AP pelvis FINDINGS: There is a right femoral neck fracture. Femoral head articulates with the acetabulum. No additional fractures identified. Follow-up can be performed as clinically indicated. IMPRESSION: 1. Right femoral neck fracture. [facility], Workstation: [facility], 12/20/2024 10:40 PM
[2024-12-20] MEDS ORDERED: ACETAMINOPHEN TAB 325 MG TAB PO PRN (22:44)
[2024-12-20] MEDS ORDERED: ONDANSETRON 4 MG/2 ML VIAL IVP PRN (22:44)
[2024-12-20] MEDS ORDERED: NALOXONE 0.4 MG/ML 1 ML VIAL IV PRN (22:44)
[2024-12-21] MEDS: HYDROmorphone 0.5 MG/0.5 ML SYRINGE IVP PRN (06:55)
[2024-12-21] MEDS: PANTOPRAZOLE 40 MG/10 ML VIAL IV SCH (10:29)
[2024-12-21] MEDS: HYDROmorphone 1 MG/ML 1 ML SYRINGE IVP PRN (10:53)
--- NOTE | 2024-12-21 11:02 | P.HPOR ---
History of Present Illness H&P Date: 12/21/24 This is a 79-year-old male who was admitted for a right hip fracture. Patient is seen and evaluated at bedside today and family is present. Patient is very hard of hearing so his family gave the history this morning. Patient's states that she heard Robert fall in their home yesterday. Patient reports pain in the right upper leg. Patient states that he has a history of polio and has chronic weakness in the right lower extremity. Patient states that he uses a cane to ambulate and wears a brace for the right leg. Patient's past medical history significant for hearing disorder, hyperlipidemia, hypertension, osteoarthritis, prostate disorder, degenerative disc disease and history of polio with right leg weakness. Patient denies any fever/chills, chest pain, shortness breath, or abdominal pain. Review of Systems See HPI. Past Medical History Past Medical History: Dementia, Eye Disorder, Hearing Disorder / Deafness, Hyperlipidemia, Hypertension, Musculoskeletal Disorder, Osteoarthritis (OA), Pneumonia, Prostate Disorder, Respiratory Disorder Additional Past Medical History / Comment(s): chronic knee pain HX OF POLIO (1946) WITH POST POLIO SYNDROME., WEARS BRACE RIGHT LEG FOR FOOT DROP., WEARS LEFT KNEE BRACE TO STABILIZE KNEE REPLACMENT, USES CANE., DDD WITH LOWER BACK PAIN. NERVE PAIN IN LEGS. walking pna, broncitis, patient states he believes he has dementia though it is undiagnosed History of Any Multi-Drug Resistant Organisms: None Reported Past Surgical History: Joint Replacement, Orthopedic Surgery, Prostate Surgery Additional Past Surgical History / Comment(s): TOTAL LEFT KNEE X2, RIGHT FOOT HAS METAL CASSIE TO PREVENT FOOT DROP. Past Anesthesia/Blood Transfusion Reactions: Previous Problems w/ Anesthesia Additional Past Anesthesia/Blood Transfusion Reaction / Comment(s): STATES SPINAL ANESTHESIA DID NOT TAKE- WOKE UP SCREAMING. STATES POST POLIO SYNDROME AFFECTS ANESTHESIA. Past Psychological History: Anxiety Smoking Status: Never smoker Past Alcohol Use History: Rare Additional Past Alcohol Use History / Comment(s): SMOKED OCCASIONAL CIGARS. QUIT SMOKING 20 YEARS AGO. Past Drug Use History: None Reported - Past Family History Mother Family Medical History: CVA/TIA Additional Family Medical History / Comment(s): OF HEART PROBLEMS IN HER 80'S Father Family Medical History: Myocardial Infarction ([place]) Additional Family Medical History / Comment(s): OF HEART ATTACK AT 48 YRS OLD. Brother(s) Family Medical History: Myocardial Infarction ([place]) Additional Family Medical History / Comment(s): TWIN BROTHER OF HEART ATTACK . Medications and Allergies Home Medications Medication Instructions Recorded Confirmed Type LORazepam [Ativan] 0.5 mg PO BID PRN 04/11/17 12/21/24 History lisinopriL [Zestril] 10 mg PO DAILY 04/11/17 12/21/24 History Gabapentin 150 mg PO TID PRN 05/13/17 12/21/24 History traMADol HCL [Ultram] 25 mg PO BID PRN 05/13/17 12/21/24 History Tamsulosin HCl [Flomax] 0.4 mg PO [id number] 03/01/21 12/21/24 History Cholecalciferol [Vitamin D3 (25 25 mcg PO DAILY 12/21/24 12/21/24 History Mcg = 1000 Iu)] Sertraline [Zoloft] 100 mg PO DAILY 12/21/24 12/21/24 History Allergies Allergy/AdvReac Type Severity Reaction Status Date / Time No Known Allergies Allergy Verified 12/21/24 08:31 Physical Examination Right lower extremity: Skin intact. Shortened and externally rotated. No erythema or ecchymosis. Patient is able to wiggle the toes of the right foot. Limited motion of his right lower extremity secondary to chronic right lower extremity weakness. Right lower extremity is warm and well-perfused. Head is normocephalic and atraumatic. Exams of bilateral upper extremities and the left lower extremity are within normal limits. Results X-rays of the right hip and pelvis reveal a right femoral neck fracture. - Labs Labs: Abnormal Lab Results - Last 24 Hours (Table) 12/20/24 12/20/24 12/20/24 Range/Units 20:51 20:51 20:51 WBC 10.12 H (4.50-10.00) 10*3/uL Immature Gran # 0.06 H (0.00-0.04) 10*3/uL Neutrophils # 8.36 H (1.80-7.70) 10*3/uL Lymphocytes # 0.60 L (0.90-5.00) 10*3/uL Monocytes # 1.05 H (0.20-1.00) 10*3/uL Eosinophils # 0.02 L (0.04-0.35) 10*3/uL APTT 18.8 L (22.0-30.0) sec Sodium 135 L (137-145) mmol/L Carbon Dioxide 21 L (22-30) mmol/L BUN 34 H (9-20) mg/dL Glucose 110 H (74-99) mg/dL Total Bilirubin 1.5 H (0.2-1.3) mg/dL H & H 12/20/24 Range/Units 20:51 Hgb 13.4 (13.0-17.0) g/dL Hct 40.5 (39.6-50.0) % Coagulation 12/20/24 Range/Units 20:51 INR 1.0 (<1.2) Result Diagrams: 12/20/24 20:51 12/20/24 20:51 Assessment and Plan (1) Fall Current Visit: Yes Status: Acute Code(s): W19.XXXA - UNSPECIFIED FALL, INITIAL ENCOUNTER SNOMED Code(s): 4815299 (2) Fracture of femoral neck, right Current Visit: Yes Status: Acute Code(s): S72.001A - FRACTURE OF UNSP PART OF NECK OF RIGHT FEMUR, INIT SNOMED Code(s): 3677331 Plan: 1. Patient has been n.p.o. 2. Appreciate input from internal medicine. 3. Planning for right hip hemiarthroplasty with direct anterior approach later today pending medical clearance and patient consent. All questions and concerns were addressed at bedside today.
[2024-12-21] MEDS: TAMSULOSIN 0.4 MG CAP.ER.24H PO SCH (12:33)
--- NOTE | 2024-12-21 12:40 | P.CONS ---
History of Present Illness - Reason for Consult Consult date: 12/21/24 Medical management - Chief Complaint right hip pain - History of Present Illness Patient is a 79-year-old male with a past medical history of hearing disorder/deafness post cochlear implant, hypertension, hyperlipidemia, osteoarthritis, right foot drop, chronic low back pain, anxiety and other m edical problems was brought to the hospital status post fall. Patient usually walks with a cane. Around 10 AM he was going to the kitchen and slid his leg out causing him to fall and land on his right side. Denied any hitting his head or loss of consciousness. Since then has been having right hip pain and lower back pain and unable to move his right leg. Unable to ambulate. Pain did not get any better throughout the day and worse brought to the hospital by EMS. Patient is hard of hearing and most of the history was obtained from his son at bedside. Chest x-ray showed no acute process EKG showed sinus rhythm with heart rate 70 x-ray knee showed no acute osseous abnormality radiographically apparent right knee. X-ray of the hip/pelvis showed right femoral neck fracture Laboratory data showed WBC 10.1 hemoglobin 13.4, platelets 215 Sodium 135 potassium 5.0 chloride 102 bicarb is 21 BUN 34 and creatinine 0.79 and blood sugar 110 and total bili 1.5. Liver enzymes are not elevated. Review of Systems Constitutional: Patient denies any fever or chills . No generalized weakness or weight loss. Abdomen: Patient denied nausea vomiting and diarrhea and abdominal pain. Cardiovascular: Patient denies any chest pain or short of breath no palpitations. Respiratory: patient denied any cough or sputum production. No shortness of breath Neurologic: Patient denied any numbness or tingling. no headache. 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 NERVE PAIN IN LEGS. walking pna, broncitis, patient states he believes he has dementia though it is undiagnosed History of Any Multi-Drug Resistant Organisms: None Reported Past Surgical History: Joint Replacement, Orthopedic Surgery, Prostate Surgery Additional Past Surgical History / Comment(s): TOTAL LEFT KNEE X2, RIGHT FOOT HAS METAL CASSIE TO PREVENT FOOT DROP. Past Anesthesia/Blood Transfusion Reactions: Previous Problems w/ Anesthesia Additional Past Anesthesia/Blood Transfusion Reaction / Comm: STATES SPINAL ANESTHESIA DID NOT TAKE- WOKE UP SCREAMING. STATES POST POLIO SYNDROME AFFECTS ANESTHESIA. Past Psychological History: Anxiety Smoking Status: Never smoker Past Alcohol Use History: Rare Additional Past Alcohol Use History / Comment(s): SMOKED OCCASIONAL CIGARS. QUIT SMOKING 20 YEARS AGO. Past Drug Use History: None Reported - Past Family History Mother Family Medical History: CVA/TIA Additional Family Medical History / Comment(s): OF HEART PROBLEMS IN HER 80'S Father Family Medical History: Myocardial Infarction (ND) Additional Family Medical History / Comment(s): OF HEART ATTACK AT 48 YRS OLD. Brother(s) Family Medical History: Myocardial Infarction (ND) Additional Family Medical History / Comment(s): TWIN BROTHER OF HEART ATTACK . Medications and Allergies Home Medications Medication Instructions Recorded Confirmed Type LORazepam [Ativan] 0.5 mg PO BID PRN 04/11/17 12/21/24 History lisinopriL [Zestril] 10 mg PO DAILY 04/11/17 12/21/24 History Gabapentin 150 mg PO TID PRN 05/13/17 12/21/24 History traMADol HCL [Ultram] 25 mg PO BID PRN 05/13/17 12/21/24 History Tamsulosin HCl [Flomax] 0.4 mg PO PC-[id number] 03/01/21 12/21/24 History Cholecalciferol [Vitamin D3 (25 25 mcg PO DAILY 12/21/24 12/21/24 History Mcg = 1000 Iu)] Sertraline [Zoloft] 100 mg PO DAILY 12/21/24 12/21/24 History Allergies Allergy/AdvReac Type Severity Reaction Status Date / Time No Known Allergies Allergy Verified 12/21/24 08:31 Physical Exam Vitals: Vital Signs Temp Pulse Pulse Resp BP BP Pulse Ox 12/21/24 08:00 98.9 F 72 15 112/64 92 L 12/21/24 00:46 98.2 F 81 18 97/58 94 L 12/21/24 00:02 75 18 110/60 94 L 12/20/24 22:00 87 18 121/65 95 12/20/24 20:26 99.6 F 69 16 115/47 95 Intake and Output 12/20/24 12/21/24 12/21/24 22:59 06:59 14:59 Output Total 350 Balance -350 Output: Urine 350 Other: Weight 72.575 kg 72.575 kg PHYSICAL EXAMINATION: Patient is lying in the bed, no acute distress, awake alert and oriented x 1. Hard of hearing. HEENT: Normocephalic. Neck is supple. Pupils reactive. Nostrils clear. Oral cavity is moist. Neck reveals no JVD, carotid bruits, or thyromegaly. CHEST EXAMINATION: Trachea is central. Symmetrical expansion. Lung jimenez clear to auscultation and percussion. CARDIAC: Normal S1, S2 with no gallops. No murmurs ABDOMEN: Soft. Bowel sounds normal. No organomegaly. No abdominal bruits. Extremities: reveal no edema. No clubbing or cyanosis Neurologically awake, alert, oriented x 1 able to move left lower extremity. No gross focal deficits noted Skin: No rash or skin lesions. Psychiatric: Coperative. Could not be assessed completely Musculoskeletal: No joint swelling or deformity. Right leg externally rotated and pain with movement. , No Results CBC & Chem 7: 12/20/24 20:51 12/20/24 20:51 Labs: Abnormal Lab Results - Last 24 Hours (Table) 12/20/24 12/20/24 12/20/24 Range/Units 20:51 20:51 20:51 WBC 10.12 H (4.50-10.00) 10*3/uL Immature Gran # 0.06 H (0.00-0.04) 10*3/uL Neutrophils # 8.36 H (1.80-7.70) 10*3/uL Lymphocytes # 0.60 L (0.90-5.00) 10*3/uL Monocytes # 1.05 H (0.20-1.00) 10*3/uL Eosinophils # 0.02 L (0.04-0.35) 10*3/uL APTT 18.8 L (22.0-30.0) sec Sodium 135 L (137-145) mmol/L Carbon Dioxide 21 L (22-30) mmol/L BUN 34 H (9-20) mg/dL Glucose 110 H (74-99) mg/dL Total Bilirubin 1.5 H (0.2-1.3) mg/dL Assessment and Plan Assessment: Acute right femoral neck fracture status post mechanical fall Hypovolemic hyponatremia Hearing disorder/deafness with history of cochlear implant Osteoarthritis Hyperlipidemia Hypertension Chronic back pain and degenerative disc disease Right foot drop history DVT prophylaxis and GI prophylaxis Plan: Patient will be started on gentle IV hydration. Continue pain management and encourage incentive spirometry. Will hold losartan since the blood pressure is not elevated. Follow-up CBC and CMP tomorrow. Currently patient denied any complaints of chest pain or shortness of breath. No history of prior CVA. Renal function is stable. Patient is at low risk for orthopedic surgery. Will continue to follow and further recommendations based on the clinical course. Thank you kindly for your consult. Time with Patient: Greater than 30
[2024-12-21] MEDS: SODIUM CHLORIDE 0.9% 1,000 ML IV SCH ×2 (12:42→18:11)
[2024-12-21] MEDS: IV FLUID CONTINUATION 1,000 ML IV ONE (15:55)
[2024-12-21] MEDS: LACTATED RINGERS 1,000 ML BAG IV STA (15:58)
[2024-12-21] MEDS: MIDAZOLAM 2 MG/2 ML VIAL IV ONE (15:59)
[2024-12-21] MEDS ORDERED: MAGNESIUM HYDROXIDE 2,400 MG/30 ML CUP PO PRN (16:39)
[2024-12-21] MEDS ORDERED: NALOXONE 0.4 MG/ML 1 ML VIAL IV PRN (16:39)
[2024-12-21] MEDS ORDERED: HYDROmorphone 0.5 MG/0.5 ML SYRINGE IVP PRN ×3 (16:39)
[2024-12-21] MEDS ORDERED: fentaNYL (PF) 50 MCG/ML 2 ML AMP ONE (16:52)
[2024-12-21] MEDS ORDERED: PROPOFOL 10 MG/ML 20 ML VIAL IV ONE (16:52)
[2024-12-21] MEDS ORDERED: LIDOCAINE 1% INJ 10MG/ML (20 ML MDV) ONE (16:52)
[2024-12-21] MEDS ORDERED: PHENYLEPHRINE-0.9% NACL SYG 1,000 MCG/10 ML SYRINGE ONE (16:52)
[2024-12-21] MEDS ORDERED: TRANEXAMIC 1,000 MG/100ML-NACL PREMIX BAG ONE (16:52)
[2024-12-21] MEDS: ceFAZolin 2 GM in DEXTROSE 5% IN WATER 50 ML IVPB ONE (16:55)
[2024-12-21] MEDS: ceFAZolin 1,000 MG in SODIUM CHLORIDE 0.9% 1,000 ML IRRIGATION ONE (17:23)
[2024-12-21] MEDS: ROPIVACAINE 5 MG/ML 30 ML VIAL MISCELLANE ONE (17:24)
[2024-12-21] MEDS: TRANEXAMIC 1,000 MG/100ML-NACL 1,000 MG in SALINE 1 100ML.BAG IVPB ONE ×2 (17:43)
--- NOTE | 2024-12-21 17:57 | P.OP ---
Date of Procedure: 12/21/24 Preoperative Diagnosis: Displaced subcapital fracture right hip Postoperative Diagnosis: Displaced subcapital fracture right hip Procedure(s) Performed: Right hip hemiarthroplasty Implants: Haeny and nephew Polarstem size 2 standard with a collar [employer]aney [employer] Nephew tandem unipolar, 48 mm Haney [employer] Nephew tandem unipolar 12/14 taper sleeve, +0 mm All components were press-fit. Anesthesia: GETA Surgeon: Mike Ochoa Talent Engineer #1: Jocelyn Amezcua Estimated Blood Loss (ml): 300 Pathology: none sent Condition: stable Disposition: PACU Indications for Procedure: This is a 79-year-old gentleman that sustained a ground-level fall at home. 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 After discussing the surgical nonsurgical treatment options with him at length and his son, I recommended right hip hemiarthroplasty for displaced subcapital fracture of the right hip. Informed consent was obtained. Operative Findings: The operative findings are consistent with a displaced subcapital fracture of the right hip Description of Procedure: The patient was seen and evaluated in the preoperative area and the consent was reviewed. The operative site was marked with a skin marker. The patient verified the procedure and operative site. A TUSHAR block was placed by anesthesia in the preoperative area. The patient was then brought to the o perating room and given preoperative antibiotics intravenously. 1 g of Tranexamic acid was also given intravenously. A general anesthetic was administered by the anesthesia department. The patient was then placed on the [place] table with the bony prominences well-padded. The hip area was then prepped with a ChloraPrep solution and draped in the usual sterile fashion. A universal timeout was then performed, which confirmed the patient's name, surgical site, ALLERGIES, and procedure being performed on the consent. Next the incision site was located at 1 cm distal and 4 cm lateral to the anterior superior iliac spine. The skin and subcutaneous tissues were sharply incised. Incision was carefully dissected down to the fascia overlying the tensor fascia francy muscle. This fascia was then incised in line with the muscle fibers. Care was taken to stay laterally in order to avoid injuring the lateral femoral cutaneous nerve. Next, using blunt finger dissection, the tensor fascia francy muscle was dissected off its investing fascia. The muscle was then carefully retracted laterally with a cobra retractor over the lateral neck of the femur. Next, the circumflex vessels were identified and cauterized using the Aquamantis device. The anterior hip capsule was then exposed. The capsule was then opened and an inverted T fashion. The retractors were then placed intracapsularly. Th e retractors were maintained intracapsular throughout the procedure. The proximal femur was then visualized. A small amount of traction was placed on the leg. The femoral neck was then osteotomized at the appropriate level above the lesser trochanter. A small wedge of bone was then removed from the remaining femoral head. Next, using a corkscrew the femoral head was removed from the acetabulum. The femoral head was then measured. Attention was then turned to the acetabulum. The acetabulum was exposed and inspected. There was no evidence of any significant arthrosis. Attention was then directed to the femur. With the aid of the [place] table, the femur was externally rotated to approximately 130, extended, and adducted under the opposite leg. A side hook was then placed under the proximal femur, and the side hook elevator was used to elevate the proximal femur while releasing the capsule. Retractors were then placed. A capsular release was performed, as well as a release of the conjoined tendon, which afforded excellent visualization of the proximal femur. Next, a box osteotome was used to lateralize the proximal femur. A field hand was then used to locate the femoral canal. Sequential broaching was then performed with appropriate size which afforded excellent fixation in the proximal femur. A trial was then placed with appropriate head and neck, and the hip was gently reduced with the aid of the [place] table. Fluoroscopy was then used to check position of the components, as well as to evaluate the leg lengths and offset. The leg lengths and offset were measured as closely as possible to ensure stability of the hip. The hip was then gently dislocated and the trials were then removed. Final implants were then impacted and the hip was again reduced. Final fluoroscopic x-rays confirmed that the components were in anatomic position. The leg lengths and offset were measured and were found to coincide with the trial measurements. The hip was also taken through range of motion, and found to be stable. The hip was then copiously irrigated with antibiotic solution with pulsatile lavage. The hip was then irrigated with Irrisept solution. The soft tissues were then injected with a ropivacaine solution. A second dose of 1 g of Tranexamic acid was also given intravenously. The fascia was then closed with 2-0 strata fix suture. The subcutaneous tissue was closed with 3-0 Vicryl. The subcuticular tissue was closed with 3-0 Monocryl suture. The skin was then closed with Exofin skin glue. After the glue and dried, and Optifoam silver impregnated dressing was applied. The patient was then transferred to the recovery room in stable condition. The expanded function dental assistant NAYAN Jones was required due to the complexity of surgery, and the need for skilled surgical garment assembler for positioning, draping, exposure, retraction, and closure of the wound.
--- NOTE | 2024-12-21 18:27 | FL ---
EXAMINATION TYPE: FL guidance operating room, XR Hip Limited RT DATE OF EXAM: 12/21/2024 6:05 PM COMPARISON: Pre Operative Images if available both CT/MRI or plain film CLINICAL INDICATION: Male, 79 years old with history of RT ANTERIOR HIP; TECHNIQUE: FL guidance operating room, XR Hip Limited RT, multiple fluoroscopic images provided for p rocedure. DAP: 0.9947 mGym2 Gycm2 uGym2 cGycm2 or equivalent. FINDINGS: Fluoroscopic images during arthroplasty demonstrate hardware in appropriate position. Hardware appear s intact. No immediate complication identified. IMPRESSION: 1. No evidence for intraoperative complication. 2. Please see the operative/procedural note for further details. [facility], , 12/21/2024 6:12 PM
--- NOTE | 2024-12-21 18:48 | XR ---
EXAMINATION TYPE: XR Hip Limited RT DATE OF EXAM: 12/21/2024 6:36 PM COMPARISON: CLINICAL INDICATION: Male, 79 years old with history of status post op lucia right hip; PHH, pain TECHNIQUE: XR Hip Limited RT; Frontal view FINDINGS: Post arthroplasty changes, hardware is intact, alignment is appropriate. No evidence of fra cture. Postoperative changes of the soft tissues with subcutaneous gas. No evidence of any acute osse ous pathology or joint dislocation. Atherosclerosis of the arterial vasculature. IMPRESSION: Right Hip lucia-arthroplasty with hardware intact and in appropriate alignment. No acute fracture. [facility], , 12/21/2024 6:46 PM
[2024-12-21] MEDS: SENNOSIDES-DOCUSATE SODIUM 1 EACH TAB PO SCH (21:02)
[2024-12-21] MEDS: HYDROcodone/APAP 5-325MG 1 EACH TAB PO PRN (21:02)
[2024-12-21] MEDS: ceFAZolin 2 GM in DEXTROSE 5% IN WATER 50 ML IVPB SCH (23:39)
[2024-12-22] MEDS: HYDROcodone/APAP 5-325MG 1 EACH TAB PO PRN (02:54)
[2024-12-22 05:36] LABS: Basophils # (A) 0.02 10*3/uL (0.00-0.10); Basophils % (A) 0.3 %; Eosinophils # (A) 0.09 10*3/uL (0.04-0.35); Eosinophils % (A) 1.2 %; HCT 29.8 % (39.6-50.0); Lymphocytes # (A) 0.79 10*3/uL (0.90-5.00); Lymphocytes % (A) 10.9 %; MCH 31.2 pg (27.0-32.0); MCHC 33.9 g/dL (32.0-37.0); Mean Platelet Volume 10.3 fL (9.5-12.2); Monocytes # (A) 0.79 10*3/uL (0.20-1.00); Monocytes % (A) 10.9 %; Neutrophils % (A) 76.1 %; Platelet Count 157 10*3/uL (140-440); RBC 3.24 10*6/uL (4.40-5.60); RDW 13.9 % (11.5-14.5); WBC 7.23 10*3/uL (4.50-10.00)
[2024-12-22 05:41] LABS: HGB 10.1 g/dL (13.0-17.0)
[2024-12-22] MEDS: SERTRALINE 100 MG TAB PO SCH (08:05)
[2024-12-22 08:58] VITALS: RESP 16
[2024-12-22 09:33] LABS: ALT 37 U/L (10-49); AST 58 U/L (14-35); Albumin 2.9 g/dL (3.8-4.9); Albumin/Globulin Ratio 1.53 Ratio (1.60-3.17); Alkaline Phosphatase 74 U/L (41-126); Blood Urea Nitrogen 18.7 mg/dL (9.0-27.0); Calcium 7.8 mg/dL (8.7-10.3); Carbon Dioxide 21.5 mmol/L (21.6-31.8); Chloride 105 mmol/L (96-109); Globulin 1.9 g/dL (1.6-3.3); Glucose 88 mg/dL (70-110); Potassium 3.9 mmol/L (3.5-5.5); Sodium 137 mmol/L (135-145); Total Bilirubin 1.3 mg/dL (0.3-1.2); Total Protein 4.8 g/dL (6.2-8.2)
--- NOTE | 2024-12-22 12:37 | P.PN ---
Subjective Progress Note Date: 12/22/24 This is a 79-year-old male who is status post right hip hemiarthroplasty. This is postoperative day #1 and patient is seen and evaluated at bedside today. Patient states that his hip is sore, but he was able to transfer to a chair today. Objective - Vital Signs Vital signs: Vital Signs Temp 98.9 F 12/22/24 07:00 Pulse 72 12/22/24 08:05 Resp 16 12/22/24 08:05 BP 142/68 12/22/24 07:00 Pulse Ox 95 12/22/24 07:00 FiO2 Intake & Output 12/21/24 12/22/24 12/22/24 18:59 06:59 18:59 Intake Total 951 0 Output Total 300 750 600 Balance 651 -750 -600 Weight 72.575 kg 72.575 kg Intake: IV 951 0 Output: Urine 750 600 Estimated Blood Loss 300 Other: Voiding Method External Catheter External Catheter Bedside Commode Diaper Incontinent External Catheter # Bowel Movements 1 2 - Exam Vital signs are stable. Patient is in no acute distress and is alert and oriented 3. Calf is soft and nontender to palpation. Dressing is clean, dry, and intact. Patient has muscle atrophy and chronic weakness of the right lower extremity. Sensation intact. Neurovascular status and circulatory status are intact. - Labs CBC & Chem 7: 12/22/24 04:34 12/22/24 04:37 Labs: Abnormal Lab Results - Last 24 Hours (Table) 12/22/24 12/22/24 Range/Units 04:34 04:37 RBC 3.24 L (4.40-5.60) 10*6/uL Hgb 10.1 L D (13.0-17.0) g/dL Hct 29.8 L (39.6-50.0) % Lymphocytes # 0.79 L (0.90-5.00) 10*3/uL Carbon Dioxide 21.5 L (21.6-31.8) mmol/L Creatinine 0.5 L (0.6-1.5) mg/dL BUN/Creatinine Ratio 37.40 H (12.00-20.00) Ratio Calcium 7.8 L (8.7-10.3) mg/dL Total Bilirubin 1.3 H (0.3-1.2) mg/dL AST 58 H (14-35) U/L Total Protein 4.8 L (6.2-8.2) g/dL Albumin 2.9 L (3.8-4.9) g/dL Albumin/Globulin Ratio 1.53 L (1.60-3.17) Ratio Vitamin D 25-Hydroxy 16.0 L (30.0-100.0) ng/mL Assessment and Plan (1) Fall Current Visit: Yes Status: Acute Code(s): W19.XXXA - UNSPECIFIED FALL, INITIAL ENCOUNTER SNOMED Code(s): 8218046 (2) Fracture of femoral neck, right Current Visit: Yes Status: Acute Code(s): S72.001A - FRACTURE OF UNSP PART OF NECK OF RIGHT FEMUR, INIT SNOMED Code(s): 8426992 Plan: Continue routine postop care and pain control. Continue anticoagulation with Eliquis. Weightbearing as tolerated with a walker. Leave dressing in place for 7 days. Appreciate input from internal medicine. Anticipate discharge to ECF in the next 24-48 hours.
[2024-12-22] MEDS: APIXABAN 2.5 MG TABLET PO SCH (20:36)
--- NOTE | 2024-12-23 04:27 | P.PN ---
Subjective Progress Note Date: 12/22/24 - Reason for Consult Consult date: 12/21/24 Medical management - Chief Complaint right hip pain - History of Present Illness Patient is a 79-year-old male with a past medical history of hearing disorder/deafness post cochlear implant, hypertension, hyperlipidemia, osteoarthritis, right foot drop, chronic low back pain, anxiety and other medical problems was brought to the hospital status post fall. Patient usually walks with a cane. Around 10 AM he was going to the kitchen and slid his leg out causing him to fall and land on his right side. Denied any hitting his head or loss of consciousness. Since then has been having right hip pain and lower back pain and unable to move his right leg. Unable to ambulate. Pain did not get any better throughout the day and worse brought to the hospital by EMS. Patient is hard of hearing and most of the history was obtained from his son at bedside. Chest x-ray showed no acute process EKG showed sinus rhythm with heart rate 70 x-ray knee showed no acute osseous abnormality radiographically apparent right knee. X-ray of the hip/pelvis showed right femoral neck fracture Laboratory data showed WBC 10.1 hemoglobin 13.4, platelets 215 Sodium 135 potassium 5.0 chloride 102 bicarb is 21 BUN 34 and creatinine 0.79 and blood sugar 110 and total bili 1.5. Liver enzymes are not elevated. 12/22/2024 Patient is seen in follow-up currently sitting up in the chair with family at bedside. Patient is extremely hard of hearing even with hearing aids he cannot hear much although reports continued right hip pain and is. Patient has history of right foot drop foot and reports he had polio when he was younger and has not had much feeling or sensation in the right lower extremity since. Patient is afebrile with no reports of chest pain or shortness of breath. Patient reports to tolerating diet and denies any nausea or vomiting. Plan is for ECF per orthopedics for continued strength and mobility and case management following has submitted for insurance authorization which is pending. Review of systems: Constitutional: No reports of fatigue, fever, or chills Cardiovascular: No reports of chest pain or palpitations Respiratory: No reports of shortness of breath or cough GI: No reports of nausea, vomiting, or diarrhea : No reports of dysuria or retention Neurovascular: reports of generalized weakness with right hip pain All medications have been reviewed PHYSICAL EXAMINATION: Patient is sitting up in the chair, no acute distress, awake alert and oriented x 1. Extremely hard of hearing. Well-developed, thin built, elderly appearing HEENT: Normocephalic. Neck is supple. Pupils reactive. Nostrils clear. Oral cavity is moist. Neck reveals no JVD, carotid bruits, or thyromegaly. CHEST EXAMINATION: Trachea is central. Symmetrical expansion. Lung jimenez clear to auscultation and percussion. CARDIAC: Normal S1, S2 with no gallops. No murmurs ABDOMEN: Soft. Bowel sounds normal. No organomegaly. No abdominal bruits. Extremities: reveal no edema. No clubbing or cyanosis Neurologically awake, alert, oriented x 1 able to move left lower extremity. No gross focal deficits noted Skin: No rash or skin lesions. Psychiatric: Cooperative. Musculoskeletal: No joint swelling or deformity. Right hip surgical dressing is dry and intact, some swelling noted although soft and palpable Assessment: Acute right femoral neck secondary to mechanical fall status post right hip arthroplasty Hypovolemic hyponatremia Hearing disorder/deafness with history of cochlear implant Osteoarthritis Hyperlipidemia Hypertension Chronic back pain and degenerative disc disease Right foot drop history DVT prophylaxis and GI prophylaxis Full code Plan: Patient is continued on gentle IV hydration. And sodium is improved at 137 today. Patient is eating and drinking continue and will likely discontinue IV fluids. Pain management and DVT prophylaxis per orthopedics Encourage incentive spirometry at least 10 times every hour while awake. Will hold blood pressure medication for now and monitor for postop hypotension Plan is for [facility] with case management following has submitted for insurance authorization which is pending Patient will need resources for primary care provider in the outpatient setting as they report his PCP has retired Encouraged increase activity as tolerated with sitting up in the chair more frequently and working with PT/OT therapy We will continue to follow along with orthopedics during hospitalization. Thank you kindly for this consultation. The impression and plan of care has been dictated by Viviana Platt, Nurse Practitioner as directed. Dr. Hilda MD I have performed a history and examination and MDM of this patient, discussed the same with the dictator, and agree with the dictator's assessment and plan as written ,documented as a scribe. Based on total visit time, I have performed more than 50% of the visit. Objective - Vital Signs Vital signs: Vital Signs Temp 98.9 F 12/22/24 07:00 Pulse 72 12/22/24 08:05 Resp 16 12/22/24 08:05 BP 142/68 12/22/24 07:00 Pulse Ox 95 12/22/24 07:00 FiO2 Intake & Output 12/21/24 12/22/24 12/22/24 18:59 06:59 18:59 Intake Total 951 0 Output Total 300 750 600 Balance 651 -750 -600 Weight 72.575 kg 72.575 kg Intake: IV 951 0 Output: Urine 750 600 Estimated Blood Loss 300 Other: Voiding Method External Catheter External Catheter Bedside Commode Diaper Incontinent External Catheter # Bowel Movements 1 2 - Labs CBC & Chem 7: 12/22/24 04:34 12/22/24 04:37 Labs: Abnormal Lab Results - Last 24 Hours (Table) 12/22/24 12/22/24 Range/Units 04:34 04:37 RBC 3.24 L (4.40-5.60) 10*6/uL Hgb 10.1 L D (13.0-17.0) g/dL Hct 29.8 L (39.6-50.0) % Lymphocytes # 0.79 L (0.90-5.00) 10*3/uL Carbon Dioxide 21.5 L (21.6-31.8) mmol/L Creatinine 0.5 L (0.6-1.5) mg/dL BUN/Creatinine Ratio 37.40 H (12.00-20.00) Ratio Calcium 7.8 L (8.7-10.3) mg/dL Total Bilirubin 1.3 H (0.3-1.2) mg/dL AST 58 H (14-35) U/L Total Protein 4.8 L (6.2-8.2) g/dL Albumin 2.9 L (3.8-4.9) g/dL Albumin/Globulin Ratio 1.53 L (1.60-3.17) Ratio Vitamin D 25-Hydroxy 16.0 L (30.0-100.0) ng/mL
[2024-12-23] MEDS: PANTOPRAZOLE 40 MG TABLET PO SCH (06:36)
--- NOTE | 2024-12-23 12:56 | P.PN ---
Subjective Progress Note Date: 12/23/24 Principal diagnosis: Primary osteoarthritis right hip. Status post total right hip arthroplasty with direct anterior approach. This is a 79-year-old male who is postop day #2 status post hemiarthroplasty of the right hip. He has no new complaints or concerns today. Vital signs are stable. He is requesting that he be evaluated for a hinged/locking knee brace for his right knee secondary to his polio. Objective - Vital Signs Vital signs: Vital Signs Temp 98.8 F 12/23/24 06:55 Pulse 77 12/23/24 08:40 Resp 16 12/23/24 08:40 BP 136/67 12/23/24 06:55 Pulse Ox 94 L 12/23/24 06:55 FiO2 Intake & Output 12/22/24 12/23/24 12/23/24 18:59 06:59 18:59 Output Total 600 200 Balance -600 -200 Output: Urine 600 200 Other: Voiding Method Bedside Commode Urinal Urinal Diaper Diaper Diaper Incontinent Incontinent Incontinent External Catheter # Voids 1 # Bowel Movements 1 - Exam This is a pleasant 79-year-old male in no acute distress. He is alert and oriented x 3. He is hearing impaired. Exam of the right hip reveals that his dressing is clean, dry and intact. He has limited active motion of the foot and ankle secondary to his polio. Pedal pulse is +2/4. Neurovascular status to the lower extremity is intact. - Labs CBC & Chem 7: 12/22/24 04:34 12/22/24 04:37 Assessment and Plan (1) Fall Current Visit: Yes Status: Acute Code(s): W19.XXXA - UNSPECIFIED FALL, INITIAL ENCOUNTER SNOMED Code(s): 1407521 (2) Fracture of femoral neck, right Current Visit: Yes Status: Acute Code(s): S72.001A - FRACTURE OF UNSP PART OF NECK OF RIGHT FEMUR, INIT SNOMED Code(s): 9913377 Plan: The clinical findings are discussed with the patient. We are planning discharge to inpatient rehab when cleared medically and placement is arranged. We discussed the bracing of his knee and stated that it would most likely be something that would have to be dealt with as an outpatient through his primary care physician. We will continue to follow.
--- NOTE | 2024-12-23 12:59 | P.DS ---
Providers Date of admission: 12/20/24 23:07 Expected date of discharge: 12/23/24 Attending physician: Mike Ochoa Consults: 12/20/24 22:44 Consult Physician Urgent Consulting Provider: Ángel Alvarenga Consult Reason/Comments: Medical management, surgical clearance Do you want consulting provider notified?: Yes Primary care physician: Michael Banda - Discharge Diagnosis(es) (1) Fall Current Visit: Yes Status: Acute (2) Fracture of femoral neck, right Current Visit: Yes Status: Acute Hospital Course: This is an 79-year-old male who presented on 12/20/2024 after falling and sustaining injury to the right hip. On exam and x-ray in the emergency department she was found to have a hip fracture. The pt is admitted to our service for surgical intervention and care. The patient is taken to surgery for hemiarthroplasty of the right hip. The procedure is performed without complication or sequelae. The patient is doing well postoperatively. Vital signs are stable on postop day #2. There are no new complaints or concerns. The patient is discharged to inpatient rehab pending medical clearance today. Please refer to the [facility] rec for accurate list of medications. Plan - Discharge Summary Discharge Rx Participant: Yes New Discharge Prescriptions: New Apixaban [Eliquis] 2.5 mg PO BID 30 Days #60 tab Magnesium Hydroxide [Milk of Magnesia] 2,400 mg PO DAILY PRN ml PRN Reason: Constipation HYDROcodone/APAP 5-325MG [[place] 5-325] 1 - 2 tab PO Q6HR PRN #32 tab PRN Reason: Pain Sennosides [Senokot] 2 tab PO DAILY PRN #60 tablet PRN Reason: Constipation Pantoprazole [Protonix] 40 mg PO AC-BRKFST tab Acetaminophen Tab [Tylenol] 650 mg PO Q6HR PRN tab PRN Reason: Mild Pain Or Fever > 100.5 Continue Gabapentin 150 mg PO TID PRN PRN Reason: LEG PAIN Tamsulosin HCl [Flomax] 0.4 mg PO PC-BRKFST Sertraline [Zoloft] 100 mg PO DAILY Cholecalciferol [Vitamin D3 (25 Mcg = 1000 Iu)] 25 mcg PO DAILY Discontinued LORazepam [Ativan] 0.5 mg PO BID PRN PRN Reason: Anxiety lisinopriL [Zestril] 10 mg PO DAILY traMADol HCL [Ultram] 25 mg PO BID PRN PRN Reason: Pain Discharge Medication List Gabapentin 150 mg PO TID PRN 05/13/17 [History] Tamsulosin HCl [Flomax] 0.4 mg PO PC-BRKFST 03/01/21 [History] Apixaban [Eliquis] 2.5 mg PO BID 30 Days #60 tab 12/21/24 [Rx] Cholecalciferol [Vitamin D3 (25 Mcg = 1000 Iu)] 25 mcg PO DAILY 12/21/24 [History] HYDROcodone/APAP 5-325MG [[place] 5-325] 1 - 2 tab PO Q6HR PRN #32 tab 12/21/24 [Rx] Sennosides [Senokot] 2 tab PO DAILY PRN #60 tablet 12/21/24 [Rx] Sertraline [Zoloft] 100 mg PO DAILY 12/21/24 [History] Acetaminophen Tab [Tylenol] 650 mg PO Q6HR PRN tab 12/23/24 [Rx] Magnesium Hydroxide [Milk of Magnesia] 2,400 mg PO DAILY PRN ml 12/23/24 [Rx] Pantoprazole [Protonix] 40 mg PO AC-BRKFST tab 12/23/24 [Rx] Follow up Appointment(s)/Referral(s): Mike Ochoa DO [Doctor of Osteopathic Medicine] - 2 Weeks Activity/Diet/Wound Care/Special Instructions: Weightbearing as tolerated with walker. Leave dressing intact. Dressing may be removed by nurse or by patient in 7 days. Then change dressing twice daily until follow up. May shower with initial dressing intact and after removal. If dressing become saturated, please remove. Please take Eliquis twice daily for 30 days postoperatively. Recommend use of compression stockings daily until follow up to help prevent swelling and blood clots. May remove at night before sleeping. Please follow-up with [facility] in 2 weeks and call with any questions or concerns, . Defer bracing of right knee for post polio weakness/hemiparesis to PCP. Discharge/Stand Alone Forms: Area PCPs Discharge Disposition: TRANSFER TO SNF/ECF
--- NOTE | 2024-12-23 13:47 | P.PN ---
Subjective Progress Note Date: 12/23/24 - Reason for Consult Consult date: 12/21/24 Medical management - Chief Complaint right hip pain - History of Present Illness Patient is a 79-year-old male with a past medical history of hearing disorder/deafness post cochlear implant, hypertension, hyperlipidemia, osteoarthritis, right foot drop, chronic low back pain, anxiety and other medical problems was brought to the hospital status post fall. Patient usually walks with a cane. Around 10 AM he was going to the kitchen and slid his leg out causing him to fall and land on his right side. Denied any hitting his head or loss of consciousness. Since then has been having right hip pain and lower back pain and unable to move his right leg. Unable to ambulate. Pain did not get any better throughout the day and worse brought to the hospital by EMS. Patient is hard of hearing and most of the history was obtained from his son at bedside. Chest x-ray showed no acute process EKG showed sinus rhythm with heart rate 70 x-ray knee showed no acute osseous abnormality radiographically apparent right knee. X-ray of the hip/pelvis showed right femoral neck fracture Laboratory data showed WBC 10.1 hemoglobin 13.4, platelets 215 Sodium 135 potassium 5.0 chloride 102 bicarb is 21 BUN 34 and creatinine 0.79 and blood sugar 110 and total bili 1.5. Liver enzymes are not elevated. 12/22/2024 Patient is seen in follow-up currently sitting up in the chair with family at bedside. Patient is extremely hard of hearing even with hearing aids he cannot hear much although reports continued right hip pain and is. Patient has history of right foot drop foot and reports he had polio when he was younger and has not had much feeling or sensation in the right lower extremity since. Patient is afebrile with no reports of chest pain or shortness of breath. Patient reports to tolerating diet and denies any nausea or vomiting. Plan is for ECF per orthopedics for continued strength and mobility and case management following has submitted for insurance authorization which is pending. 12/23/2024 Patient is seen in follow-up today awaiting insurance authorization to [facility] which is pending at this time. Patient is medically stable once cleared by orthopedics and will be going there for continued PT/OT therapy. Patient does have a history of significant right foot drop from polio when he was younger. Blood pressure medication is being held at this time and blood pressures are normotensive recommend to resume blood pressure medications if having elevated blood pressures in the outpatient setting. Patient is medically stable once he has received insurance authorization. Review of systems: Constitutional: No reports of fatigue, fever, or chills Cardiovascular: No reports of chest pain or palpitations Respiratory: No reports of shortness of breath or cough GI: No reports of nausea, vomiting, or diarrhea : No reports of dysuria or retention Neurovascular: reports of generalized weakness with right hip pain All medications have been reviewed PHYSICAL EXAMINATION: Patient is sitting up in the chair, no acute distress, awake alert and oriented x 1. Extremely hard of hearing. Well-developed, thin built, elderly appearing HEENT: Normocephalic. Neck is supple. Pupils reactive. Nostrils clear. Oral cavity is moist. Neck reveals no JVD, carotid bruits, or thyromegaly. CHEST EXAMINATION: Trachea is central. Symmetrical expansion. Lung jimenez clear to auscultation and percussion. CARDIAC: Normal S1, S2 with no gallops. No murmurs ABDOMEN: Soft. Bowel sounds normal. No organomegaly. No abdominal bruits. Extremities: reveal no edema. No clubbing or cyanosis Neurologically awake, alert, oriented x 1 able to move left lower extremity. No gross focal deficits noted Skin: No rash or skin lesions. Psychiatric: Cooperative. Musculoskeletal: No joint swelling or deformity. Right hip surgical dressing is dry and intact, some swelling noted although soft and palpable Assessment: Acute right femoral neck secondary to mechanical fall status post right hip arthroplasty Hypovolemic hyponatremia Hearing disorder/deafness with history of cochlear implant Osteoarthritis Hyperlipidemia Hypertension Chronic back pain and degenerative disc disease Right foot drop history DVT prophylaxis and GI prophylaxis Full code Plan: Patient is currently awaiting insurance authorization to [facility] and will likely be discharged today. Encouraged patient and family to follow-up and establish with a primary care provider outpatient as he reports his recently retired. Pain management and DVT prophylaxis per orthopedics Encourage incentive spirometry at least 10 times every hour while awake. Recommend resuming blood pressure medications in the outpatient setting if blood pressure becomes elevated. Patient was taking lisinopril in the outpatient setting. Plan is for [facility] with case management following and has received insurance authorization and will be discharged today Encouraged increase activity as tolerated with sitting up in the chair more frequently and working with PT/OT therapy We will continue to follow along with orthopedics during hospitalization. Thank you kindly for this consultation. Patient is medically stable once authorization has been obtained. The impression and plan of care has been dictated by Viviana Platt, Nurse Practitioner as directed. Dr. Celso MD I have performed a history and examination and MDM of this patient, discussed the same with the dictator, and agree with the dictator's assessment and plan as written ,documented as a scribe. Based on total visit time, I have performed more than 50% of the visit. Objective - Vital Signs Vital signs: Vital Signs Temp 98.8 F 12/23/24 06:55 Pulse 77 12/23/24 06:55 Resp 16 12/23/24 06:55 BP 136/67 12/23/24 06:55 Pulse Ox 94 L 12/23/24 06:55 FiO2 Intake & Output 12/22/24 12/23/24 12/23/24 18:59 06:59 18:59 Output Total 600 200 Balance -600 -200 Output: Urine 600 200 Other: Voiding Method Bedside Commode Urinal Diaper Diaper Incontinent Incontinent External Catheter # Voids 1 # Bowel Movements 1 - Labs CBC & Chem 7: 12/22/24 04:34 12/22/24 04:37
[2024-12-23 15:24] VITALS: BP 119/63; PULSE 81; TEMP 97.4
== END 2024-12-23 16:28 | DRG 522 ==
LOC: EC 20:25 → 4SSUR 23:07
PROVIDERS: ADMIT Orthopaedic Surgery; ATTEND Orthopaedic Surgery
PROC: 0SRR0JZ Replacement of Right Hip Joint, Femoral Surface with Synthetic Substitute, Open Approach (ICD-10-PCS; principal; 2024-12-21 08:15)
DX: S72.011A Unspecified intracapsular fracture of right femur, initial encounter for closed fracture (principal); E87.1 Hypo-osmolality and hyponatremia; I10 Essential (primary) hypertension; G14 Postpolio syndrome; E78.5 Hyperlipidemia, unspecified; W01.0XXA Fall on same level from slipping, tripping and stumbling without subsequent striking against object, initial encounter; G89.29 Other chronic pain; Z96.21 Cochlear implant status; H91.90 Unspecified hearing loss, unspecified ear; F41.9 Anxiety disorder, unspecified; E86.1 Hypovolemia; M16.11 Unilateral primary osteoarthritis, right hip; R29.6 Repeated falls; Y92.009 Unspecified place in unspecified non-institutional (private) residence as the place of occurrence of the external cause; Z79.899 Other long term (current) drug therapy; Z87.891 Personal history of nicotine dependence
CPT/HCPCS: 36415; 71045; 72100; 73501; 73502; 80053; 82306; 82550; 82607; 82747; 84443; 85025; 85610; 85730; 93005; 96361; 96374; 96375; 99285